=== PATIENT | female | born 1955 | race Caucasian/White ===

== ENCOUNTER → 2019-02-25 | Day surgery (SDC) | payer OTHER ==
[2019-02-15 14:49] LABS: BASOPHILS % 0.7 % (0.0-1.0); EOSINOPHILS # (AUTO) 0.2 (0.0-0.4); EOSINOPHILS % 2.8 % (0.0-6.0); HEMATOCRIT 39.6 % (34.2-44.1); HEMOGLOBIN 14.1 g/dL (12.0-16.0); LYMPHOCYTES # (AUTO) 2.3 (1.0-3.2); LYMPHOCYTES % 39.6 % (18.0-39.1); MEAN CORPUSCULAR HEMOGLOBIN 31.6 pg (28-32); MEAN CORPUSCULAR HGB CONC 35.6 g/dL (31-35); MEAN CORPUSCULAR VOLUME 88.8 fL (81-99); MONOCYTES # (AUTO) 0.4 (0.2-0.8); MONOCYTES % 7.6 % (4.4-11.3); NEUTROPHILS # (AUTO) 2.9 (2.1-6.9); PLATELET COUNT 251 x10e3/uL (140-360); RED BLOOD COUNT 4.46 x10e6/uL (3.6-5.1); RED CELL DISTRIBUTION WIDTH 11.4 % (11.7-14.4)
[2019-02-15 15:08] LABS: ANION GAP 13.6 mmol/L (8-16); BLOOD UREA NITROGEN 14 mg/dL (7-26); BUN/CREATININE RATIO 20 (6-25); CALCIUM 9.5 mg/dL (8.4-10.2); CARBON DIOXIDE 29 mmol/L (22-29); CHLORIDE 102 mmol/L (98-107); CREATININE, SERUM 0.71 mg/dL (0.57-1.11); EST GLOMERULAR FILTRATION RATE > 60 ML/MIN (60-); GLUCOSE 118 mg/dL (74-118); POTASSIUM 3.6 mmol/L (3.5-5.1); SODIUM 141 mmol/L (136-145)
--- NOTE | 2019-02-15 15:18 | Diagnostic Imaging Report ---
EXAMINATION: CHEST 2 VIEWS INDICATION: Pre-operative COMPARISON: None FINDINGS: TUBES and LINES: None. LUNGS: The lung volumes are normal. No focal consolidation or pulmonary edema. PLEURA: No pleural effusion or pneumothorax. HEART AND MEDIASTINUM: The cardiomediastinal silhouette is normal in size and contour. BONES AND SOFT TISSUES: No acute fracture or dislocation. S-shaped curvature of the visualized spine. UPPER ABDOMEN: No free air under the diaphragm. IMPRESSION: No focal pneumonia or pulmonary edema. Signed by: Nilo Thompson MD on 02/15/2019 3:15 PM
[~2019-02-25] MED LIST: CEFTRIAXONE SOD 1 GM/NS 50 ML 50 ML IV ONE; DEXAMETHASONE SOD PHOS INJ 4 MG/ML VIAL ONE; FENTANYL CITRATE/PF 100MCG/2 ML INJ ONE; FUROSEMIDE40 MG PO; INSULIN REGULAR, HUMAN 100 UNIT/1 ML 3ML VIAL ONE; IOPAMIDOL 610MG/1ML 300 MG/ML VIAL IV ONE; LIDOCAINE HCL 2% LOCAL INJ 5 ML SDV VIAL INJ ONE; MIDAZOLAM HCL 2 MG/2 ML VIAL ONE; ONDANSETRON HCL INJ 2MG/ML 2ML 2 MG/ML VIAL ONE; PROPOFOL IV EMULSION 10 MG/ML 20 ML VIAL ONE; SEVOFLURANE INHAL SOLN 250 ML PEN BTL ONE; metformin PO; novolin SC; simvastatin
--- OUTSIDE RECORDS SUMMARY | 2019-02-25 08:52 | XMS REPORT ---
Author Author [facility] Address Unknown Phone Unavailable Care Team Providers Care Rehabilitation Program Coordinator Name Role Phone Jonnie MCGUIRE Unavailable Unavailable Problems This patient has no known problems. Allergies, Adverse Reactions, Alerts This patient has no known allergies or adverse reactions. Medications This patient has no known medications. Results Test Description Test Time Test Comments Text Results Atomic Results Result Comments CHEST 2 VIEWS 2019-02-15 15:14:00 [place] [address] Patient Name: KURT BEYER MR #: [id number] : 1955 Age/Sex: 63/F Req #: [id number] Adm Physician: Ordered by: AQUILES MCGUIRE MD Report #: [id number] Location: OR Room/Bed: Procedure: [id number] DX/CHEST 2 VIEWS Exam Date: 02/15/19 Exam Time: 1425 REPORT STATUS: Signed EXAMINATION: CHEST 2 VIEWS INDICATION: Pre-operative COMPARISON: None FINDINGS: TUBES and LINES: None. LUNGS: The lung volumes are normal. No focal consolidation or pulmonary edema. PLEURA: No pleural effusion or pneumothorax. HEART AND MEDIASTINUM: The cardiomediastinal silhouette is normal in size and contour. BONES AND SOFT TISSUES: No acute fracture or dislocation. S-shaped curvature of the visu alized spine. UPPER ABDOMEN: No free air under the diaphragm. IMPRESSION: No focal pneumonia or pulmonary edema. Signed by: Honey Thompson MD on 02/15/2019 3:15 PM Dictated By: HONEY THOMPSON MD [id number] Transcribed By: NIDIA on 02/15/19 [id number] COPY TO: AQUILES MCGUIRE MD
[2019-02-25 13:55] VITALS: BP 129/61
--- NOTE | 2019-03-23 11:44 | Operative Report ---
DATE OF PROCEDURE: 02/25/2019 SURGEON: Percy Moreland MD PREOPERATIVE DIAGNOSIS: Right distal ureteral stone. POSTOPERATIVE DIAGNOSIS: Right distal ureteral stone. OPERATIVE PROCEDURE PERFORMED: Cystoscopy, right retrograde pyelogram, right ureteroscopy, and placement of right ureteral stent. ANESTHESIA: General anesthesia. ESTIMATED BLOOD LOSS: Minimal. INDICATIONS: Ms. Merry Cleary is a 63-year-old with history of right distal ureteral stone and continued frequency or urgency microhematuria. She presents now for definitive surgical management of this problem. PROCEDURE IN DETAIL: The patient was brought into the operating room, placed in the supine position. After initiation of general anesthesia, was placed in dorsal lithotomy position and prepped and draped in the usual sterile fashion. Cystourethroscopy was performed using 22-Cameroonian cystoscope. Anterior and posterior urethra were noted to be normal. The bladder was entered without difficulty. Upon entrance into the bladder, the ureteral orifices were in normal anatomical position and produced clear efflux. There was no mucosal lesions identified. Using a 5-Cameroonian open-ended catheter, a right retrograde pyelogram was performed; this revealed no obvious hydronephrosis or any obvious obstruction. Much of the ureter was noted to lied out suggesting possible recent hydronephrosis on that side. A 0.035 wire was up into the right renal pelvis and a short ureteral access sheath was placed across the ureteral orifice. Flexible ureteroscopy was then performed. The visualized portion of the middle and proximal ureter were noted to be normal. All of the calyces were entered these were left in situ. There was mild bleeding noted at the conclusion of the procedure. The ureteral access sheath and were removed and a stent was placed such that one coil was in the renal pelvis and subsequent coil was in the bladder. The string was allowed to exit the urethral meatus. The patient's bladder was then drained in its entirety and the cystoscope and sheath were removed, and the patient was returned to supine position, and anesthesia was reversed. She was transferred to a bed and taken to the postanesthesia care unit in good condition. Of note, the needle and instrument count were correct at the conclusion of the case. MD CUCA Rhodes/HONEY /[id number]
== END | disposition home or self-care (01) ==
LOC: OR 08:43
PROVIDERS: ATTEND Urology
DX: N20.1 Calculus of ureter (principal); E11.9 Type 2 diabetes mellitus without complications; I49.3 Ventricular premature depolarization; Z88.2 Allergy status to sulfonamides; Z01.810 Encounter for preprocedural cardiovascular examination; Z01.812 Encounter for preprocedural laboratory examination; Z01.818 Encounter for other preprocedural examination; Z79.4 Long term (current) use of insulin; Z79.84 Long term (current) use of oral hypoglycemic drugs
CPT/HCPCS: 36415 ×2; 52332; 52351; 71046; 74420; 80048; 82948; 85025; 93005; C1758; C1766; C2625; J0696; J1100; J2001; J2250; J2405; J2704; J3010; Q9967; J1817